=== PATIENT | male | born 1955 | race African-American/Black ===

== ENCOUNTER 2017-06-06 00:25 | Emergency (ER) | payer MEDICAID ==
[~2017-06-06] VITALS: Ht 185.4 cm; Wt 84.0 kg
[2017-06-06 01:48] VITALS: BP 160/104
== END 2017-06-06 08:04 | disposition left against medical advice (07) ==
LOC: ER 00:25
DX: Z53.21 Procedure and treatment not carried out due to patient leaving prior to being seen by health care provider (principal)
CPT/HCPCS: 82962

== ENCOUNTER 2021-10-16 16:49 | Emergency (ER) | payer MEDICAID, MEDICARE ==
[~2021-10-16] VITALS: Ht 185.4 cm; Wt 97.0 kg
[2021-10-16 17:01] VITALS: BP 142/80
[2021-10-16] MEDS ORDERED: LIDOCAINE HCL 1% 20ML VIAL (Pyxis) INJ INFIL ONE (20:30)
[2021-10-16] MEDS ORDERED: AMOX-424 MT (20:53)
== END 2021-10-16 22:00 | disposition home or self-care (01) ==
LOC: ER 16:49
DX: S00.452A Superficial foreign body of left ear, initial encounter (principal); X58.XXXA Exposure to other specified factors, initial encounter; Y93.89 Activity, other specified; Y92.89 Other specified places as the place of occurrence of the external cause; I10 Essential (primary) hypertension; E11.9 Type 2 diabetes mellitus without complications
CPT/HCPCS: 69200; 99284; J3490

== ENCOUNTER 2022-12-01 09:15 | Emergency (ER) | payer MEDICARE, MEDICAID ==
[~2022-12-01] VITALS: Ht 185.4 cm; Wt 92.0 kg
[~2022-12-01 09:15] MED LIST: AMOX-424 MT
[2022-12-01 09:29] VITALS: BP 148/92
[2022-12-01] MEDS ORDERED: BACITRACIN ZINC OINT UDPKT TOP ONE (11:45)
[2022-12-01] MEDS ORDERED: LIDOCAINE HCL/PF 1% 10 MG/ML 5ML VIAL INFIL ONE (11:45)
[2022-12-01] MEDS ORDERED: IBUP-2029 MT (11:53)
[2022-12-01] MEDS ORDERED: BO1 TP (11:53)
== END 2022-12-01 12:14 | disposition home or self-care (01) ==
LOC: ER 09:15
DX: T16.2XXA Foreign body in left ear, initial encounter (principal); I10 Essential (primary) hypertension; E11.9 Type 2 diabetes mellitus without complications; X58.XXXA Exposure to other specified factors, initial encounter; Y93.89 Activity, other specified; Y92.89 Other specified places as the place of occurrence of the external cause
CPT/HCPCS: 69200; 99284

== ENCOUNTER 2024-06-07 10:26 | Emergency (ER) | payer OTHER, MEDICAID ==
[~2024-06-07] VITALS: Ht 177.8 cm; Wt 91.0 kg
[~2024-06-07 10:26] MED LIST changes: +BO1 TP; +IBUP-2029 MT
[2024-06-07 10:38] VITALS: TEMP 98.2; O2SAT 98
[2024-06-07] MEDS: ACYCLOVIR 400 MG TABLET PO ONE (11:39)
[2024-06-07] MEDS: HYDROCODONE/ACETAMINOPHEN 5/325MG TABLET PO ONE (11:39)
[2024-06-07] MEDS ORDERED: ACYC200C31 PO (11:48)
[2024-06-07] MEDS ORDERED: GABA-532 MT (12:09)
[2024-06-07] MEDS ORDERED: LIDO700A15 TP (12:09)
[2024-06-07 12:18] VITALS: BP 128/78; PULSE 78; RESP 14; O2SAT 99
== END 2024-06-07 12:19 | disposition home or self-care (01) ==
LOC: ER 10:26
DX: B02.9 Zoster without complications (principal); E11.9 Type 2 diabetes mellitus without complications; I10 Essential (primary) hypertension; Z90.49 Acquired absence of other specified parts of digestive tract
CPT/HCPCS: 99283